=== PATIENT | female | born 2000 | race African-American/Black ===

== ENCOUNTER 2023-01-18 01:29 | Emergency (ER) | payer OTHER ==
[2023-01-18 02:04] VITALS: BMI 34.1
[2023-01-18 03:03] LABS: INR 1.04 (0.83-1.09); PROTHROMBIN TIME (PATIENT) 12.1 SEC (9.7-13.0)
[2023-01-18 03:13] LABS: CHLORIDE 107 mmol/L (98-107); SODIUM 138 mmol/L (136-145)
[2023-01-18 03:15] LABS: CALCIUM 9.4 mg/dL (8.5-10.1)
[2023-01-18 03:16] LABS: ALBUMIN 3.6 g/dl (3.4-5.0); ANION GAP 8 MMOL/L (8-16); BLOOD UREA NITROGEN 7.5 mg/dL (7-18); CO2 23 mmol/L (21-32); GLUCOSE,RANDOM 86 mg/dL (74-106)
[2023-01-18 03:19] LABS: CREATININE 0.6 mg/dL (0.55-1.3); SGOT/AST 19 U/L (15-37); SGPT/ALT 26 U/L (13-61)
[2023-01-18 03:21] LABS: BILIRUBIN,TOTAL 0.3 mg/dL (0.2-1); TOT PROT 7.5 g/dl (6.4-8.2)
[2023-01-18 03:22] LABS: ALK PHOS 111 U/L (45-117)
[2023-01-18 03:29] LABS: HEMATOCRIT 38.9 % (32.4-45.2); HEMOGLOBIN 13.4 GM/dL (10.7-15.3); MCH 27.2 pg (25.7-33.7); MCHC 34.4 g/dl (32.0-36.0); MEAN CELL VOLUME 79.1 fl (80-96); MEAN PLT VOLUME 7.6 fl (7.5-11.1); PLATELET COUNT 338 10^3/uL (134-434); RBC 4.92 M/mm3 (3.60-5.2); RDW 16.1 % (11.6-15.6); WHITE BLOOD COUNT 8.7 K/mm3 (4.0-10.0)
[2023-01-18] MEDS ORDERED: DALBAVANCIN HCL 1,500 MG in DEXTROSE 5%-WATER - 500 ML IVPB ONE (04:35)
[2023-01-18] MEDS ORDERED: DALBAVANCIN HCL 500 MG VIAL (RESTRICTED TO ID ONLY) IVPB ONE (04:39)
[2023-01-18 05:10] LABS: ANISOCYTOSIS 2+; MACROCYTOSIS 0; TEAR DROP CELLS 2+
[2023-01-18 05:37] VITALS: RESP 16; TEMP 99.3
[2023-01-18 08:56] VITALS: BP 112/67; PULSE 88
== END 2023-01-18 09:03 | disposition home or self-care (01) ==
LOC: JER 01:29
DX: T81.31XA Disruption of external operation (surgical) wound, not elsewhere classified, initial encounter (principal)
CPT/HCPCS: 36415; 74177-TC; 80053; 84702; 85025; 85610; 86850; 86900; 86901; 99285-25; J0875; Q9967

== ENCOUNTER 2024-08-20 12:51 | Day surgery (SDC) | payer OTHER ==
[2024-08-20 13:15] VITALS: BMI 35.9
[2024-08-20 14:33] LABS: BASO % 0.5 % (0-2.0); EOS % 0.4 % (0-4.5); HEMATOCRIT 27.6 % (32.4-45.2); HEMOGLOBIN 9.3 GM/dL (10.7-15.3); LYMPH % 16.2 % (8-40); MCHC 33.8 g/dl (32.0-36.0); MEAN CELL VOLUME 82.8 fl (80-96); MEAN PLT VOLUME 6.8 fl (7.5-11.1); MONO % 7.2 % (3.8-10.2); NEUT % 75.7 % (42.8-82.8); PLATELET COUNT 350 10^3/uL (134-434); RBC 3.33 M/mm3 (3.60-5.2); RDW 14.5 % (11.6-15.6); WHITE BLOOD COUNT 14.4 K/mm3 (4.0-10.0)
[2024-08-20 14:42] LABS: INR 1.06 (0.83-1.09)
[2024-08-20 14:45] LABS: ACTIVATED PTT 30.4 SECONDS (25.2-36.5)
[2024-08-20 14:53] LABS: CHLORIDE 107 mmol/L (98-107); POTASSIUM 3.8 mmol/L (3.5-5.1); SODIUM 139 mmol/L (136-145)
[2024-08-20 14:58] LABS: ALBUMIN 3.2 g/dl (3.4-5.0); ANION GAP 7 mmol/L (4-13); CO2 25 mmol/L (21-32); GLUCOSE,RANDOM 88 mg/dL (74-106)
[2024-08-20 14:59] LABS: BLOOD UREA NITROGEN 2.4 mg/dL (7-18)
[2024-08-20 15:00] LABS: CREATININE 0.6 mg/dL (0.55-1.3); SGOT/AST 13 U/L (15-37)
[2024-08-20 15:02] LABS: BILIRUBIN,TOTAL 0.4 mg/dL (0.2-1)
[2024-08-20 15:03] LABS: ALK PHOS 96 U/L (45-117); TOT PROT 6.4 g/dl (6.4-8.2)
[2024-08-20 16:25] LABS: SGPT/ALT 16 U/L (13-61)
[2024-08-20] MEDS ORDERED: ONDANSETRON 4 MG/2 ML VIAL ONE (16:57)
[2024-08-20] MEDS ORDERED: ACETAMINOPHEN INJECTION 100 ML ONE (16:57)
[2024-08-20] MEDS: GENTAMICIN 80MG PREMIX BAG IVPB ONE (17:00)
[2024-08-20] MEDS: metroNIDAZOLE 250 MG/50 ML PREMIX BAG IVPB ONE (17:00)
[2024-08-20] MEDS: ONDANSETRON 4 MG/2 ML VIAL IVPB ONE (17:03)
[2024-08-20] MEDS: ACETAMINOPHEN 1000 MG/100 ML BAG IVPB ONE (17:04)
[2024-08-20] MEDS ORDERED: LACTATED RINGERS SOLUTION 1,000 ML IV SCH ×2 (18:15→19:30)
[2024-08-20] MEDS: GENTAMICIN INJECTION 400 MG in SODIUM CHLORIDE 100 ML IVPB ONE (18:17)
[2024-08-20] MEDS: AMPICILLIN - 2 GM in SODIUM CHLORIDE 100 ML IVPB ONE (18:17)
[2024-08-20] MEDS ORDERED: PROPOFOL 20 ML ONE ×2 (18:24→19:02)
[2024-08-20] MEDS ORDERED: MIDAZOLAM HCL 2 MG/2 ML SINGLE DOSE VIAL ONE (18:25)
[2024-08-20] MEDS ORDERED: SUCCINYLCHOLINE CHLORIDE 200 MG/10 ML SYRINGE ONE (18:25)
[2024-08-20] MEDS ORDERED: ACETAMINOPHEN 325 MG TABLET (FP) PO PRN (19:18)
[2024-08-20] MEDS ORDERED: IBUPROFEN 400 MG TABLET (FP) PO PRN (19:18)
[2024-08-20] MEDS ORDERED: ONDANSETRON 4 MG/2 ML VIAL IVPUSH PRN (19:27)
[2024-08-20 20:21] LABS: BASO % 0.2 % (0-2.0); EOS % 0.1 % (0-4.5); HEMATOCRIT 25.4 % (32.4-45.2); HEMOGLOBIN 8.5 GM/dL (10.7-15.3); LYMPH % 11.6 % (8-40); MCH 28.3 pg (25.7-33.7); MCHC 33.5 g/dl (32.0-36.0); MEAN CELL VOLUME 84.3 fl (80-96); MEAN PLT VOLUME 7.1 fl (7.5-11.1); MONO % 4.9 % (3.8-10.2); NEUT % 83.2 % (42.8-82.8); PLATELET COUNT 309 10^3/uL (134-434); RBC 3.01 M/mm3 (3.60-5.2); RDW 13.8 % (11.6-15.6)
[2024-08-20 22:12] VITALS: BP 106/63; PULSE 105; RESP 18; TEMP 97.9
== END 2024-08-20 22:45 | disposition home or self-care (01) ==
LOC: JER 12:51 → JASUSAT 17:00 → J8W 20:18 → JASUSAT 22:45
PROVIDERS: ATTEND Obstetrics & Gynecology
PROC: 3E03329 Introduction of Other Anti-infective into Peripheral Vein, Percutaneous Approach (ICD-10-PCS; 2024-08-20)
PROC: 3E03329 Introduction of Other Anti-infective into Peripheral Vein, Percutaneous Approach (ICD-10-PCS; 2024-08-20)
PROC: 3E033GC Introduction of Other Therapeutic Substance into Peripheral Vein, Percutaneous Approach (ICD-10-PCS; 2024-08-20)
PROC: 3E033NZ Introduction of Analgesics, Hypnotics, Sedatives into Peripheral Vein, Percutaneous Approach (ICD-10-PCS; principal; 2024-08-20 17:00)
DX: O04.89 (Induced) termination of pregnancy with other complications (principal); D62 Acute posthemorrhagic anemia; R42 Dizziness and giddiness; R51.9 Headache, unspecified; R05.9 Cough, unspecified; J02.9 Acute pharyngitis, unspecified; Z20.822 Contact with and (suspected) exposure to COVID-19
CPT/HCPCS: 0241U-QW; 36415; 76830-TC; 80053; 84702; 85025; 85610; 85730; 86850; 86900; 86901; 86922; 87651; 88305-TC; 93005; 93010; 94760; 99285-25; J0131

== ENCOUNTER 2024-08-25 16:54 | Inpatient (IN) | payer OTHER ==
[2024-08-25 17:14] VITALS: BMI 34.9
[2024-08-25] MEDS ORDERED: ACETAMINOPHEN INJECTION 100 ML ONE (17:59)
[2024-08-25 18:06] LABS: BASO % 0.9 % (0-2.0); EOS % 1.9 % (0-4.5); HEMATOCRIT 25.9 % (32.4-45.2); HEMOGLOBIN 8.5 GM/dL (10.7-15.3); LYMPH % 28.1 % (8-40); MCH 26.7 pg (25.7-33.7); MCHC 32.9 g/dl (32.0-36.0); MEAN CELL VOLUME 81.2 fl (80-96); MEAN PLT VOLUME 6.9 fl (7.5-11.1); MONO % 5.4 % (3.8-10.2); NEUT % 63.7 % (42.8-82.8); PLATELET COUNT 487 10^3/uL (134-434); RBC 3.19 M/mm3 (3.60-5.2); RDW 14.2 % (11.6-15.6); WHITE BLOOD COUNT 13.9 K/mm3 (4.0-10.0)
[2024-08-25] MEDS: ACETAMINOPHEN 1000 MG/100 ML BAG IVPB ONE (18:09)
[2024-08-25 18:21] LABS: POTASSIUM 3.8 mmol/L (3.5-5.1)
[2024-08-25 18:25] LABS: ALBUMIN 3.2 g/dl (3.4-5.0); BLOOD UREA NITROGEN 7.3 mg/dL (7-18)
[2024-08-25 18:28] LABS: CREATININE 0.7 mg/dL (0.55-1.3)
[2024-08-25 18:30] LABS: BILIRUBIN,TOTAL 0.4 mg/dL (0.2-1); TOT PROT 6.9 g/dl (6.4-8.2)
[2024-08-25 18:39] LABS: INR 1.16 (0.83-1.09); PROTHROMBIN TIME (PATIENT) 13.3 SEC (9.7-13.0)
[2024-08-25 18:47] LABS: HCG,QUALITATIVE URINE Positive
[2024-08-25 18:48] LABS: PH,URINE 5.5 (5.0-8.0); URINE APPEARANCE CLEAR; URINE BILIRUBIN NEGATIVE (NEGATIVE); URINE COLOR YELLOW; URINE GLUCOSE (UA) NEGATIVE (NEGATIVE); URINE KETONE TRACE (NEGATIVE); URINE LEUK ESTERASE NEGATIVE (NEGATIVE); URINE NITRITE NEGATIVE (NEGATIVE); URINE PROTEIN TRACE (NEGATIVE)
[2024-08-25] MEDS: SODIUM CHLORIDE 0.9% 1000 ML INFUS.BAG IV ONE (18:49)
[2024-08-25] MEDS ORDERED: PIPERACILLIN/TAZOB 3.375 GM 3.375 GM/50 ML BAG IVPB ONE (19:42)
[2024-08-25] MEDS: ACETAMINOPHEN W/ CODEINE LIQ 5 ML CUP PO ONE ×2 (19:49)
[2024-08-25] MEDS: PIPERACILLIN/TAZOB 3.375 GM 3.375 GM in DEXTROSE 5%-WATER - 50 ML IVPB ONE (19:49)
[2024-08-25] MEDS: BENZONATATE 200 MG CAPSULE PO ONE (21:57)
[2024-08-26] MEDS ORDERED: ONDANSETRON 4 MG/2 ML VIAL IVPUSH PRN (06:17)
[2024-08-26 08:17] LABS: BASO % 0.4 % (0-2.0); EOS % 2.3 % (0-4.5); HEMATOCRIT 23.1 % (32.4-45.2); HEMOGLOBIN 7.7 GM/dL (10.7-15.3); LYMPH % 27.1 % (8-40); MCH 26.9 pg (25.7-33.7); MCHC 33.2 g/dl (32.0-36.0); MONO % 6.3 % (3.8-10.2); NEUT % 63.9 % (42.8-82.8); PLATELET COUNT 427 10^3/uL (134-434); RBC 2.85 M/mm3 (3.60-5.2); WHITE BLOOD COUNT 11.7 K/mm3 (4.0-10.0)
[2024-08-26 08:31] LABS: POTASSIUM 3.8 mmol/L (3.5-5.1)
[2024-08-26] MEDS ORDERED: BENZONATATE 200 MG CAPSULE PO PRN (08:33)
[2024-08-26 08:34] LABS: CALCIUM 9.1 mg/dL (8.5-10.1)
[2024-08-26 08:35] LABS: ALBUMIN 2.7 g/dl (3.4-5.0); BLOOD UREA NITROGEN 4.6 mg/dL (7-18); MAGNESIUM 1.8 mg/dL (1.8-2.4)
[2024-08-26 08:38] LABS: CREATININE 0.6 mg/dL (0.55-1.3); PHOSPHOROUS 3.8 mg/dL (2.5-4.9)
[2024-08-26 08:39] LABS: BILIRUBIN,TOTAL 0.4 mg/dL (0.2-1)
[2024-08-26] MEDS: methylPREDNISolone NA SUCC 40 MG/1 ML VIAL IVPUSH SCH (09:14)
[2024-08-26] MEDS: PIPERACILLIN/TAZOB 4.5 GM 4.5 GM/100 ML BAG IVPB SCH ×2 (09:14→17:26)
[2024-08-26] MEDS ORDERED: ENOXAPARIN NA (PORCINE) 40 MG/0.4 ML DISP.SYRIN SQ SCH (10:00)
[2024-08-26] MEDS: LACTATED RINGERS SOLUTION 1,000 ML/1,000 ML INFUS.BAG IV SCH (15:24)
[2024-08-26] MEDS: PIPERACILLIN/TAZOB 4.5 GM 4.5 GM in DEXTROSE 5%-WATER 100 ML IVPB SCH (17:13)
[2024-08-26 19:36] LABS: HEMATOCRIT 23.4 % (32.4-45.2); HEMOGLOBIN 7.8 GM/dL (10.7-15.3); MCH 27.1 pg (25.7-33.7); MCHC 33.2 g/dl (32.0-36.0); MEAN CELL VOLUME 81.5 fl (80-96); MEAN PLT VOLUME 7.3 fl (7.5-11.1); PLATELET COUNT 462 10^3/uL (134-434); RBC 2.87 M/mm3 (3.60-5.2); WHITE BLOOD COUNT 13.1 K/mm3 (4.0-10.0)
[2024-08-27 06:09] VITALS: RESP 18
[2024-08-27 08:52] VITALS: BP 103/86; PULSE 80; TEMP 98.2
[2024-08-27 08:59] LABS: HEMATOCRIT 23.1 % (32.4-45.2); HEMOGLOBIN 7.6 GM/dL (10.7-15.3); MCH 27.1 pg (25.7-33.7); MCHC 32.9 g/dl (32.0-36.0); MEAN CELL VOLUME 82.3 fl (80-96); MEAN PLT VOLUME 7.3 fl (7.5-11.1); PLATELET COUNT 452 10^3/uL (134-434); RBC 2.81 M/mm3 (3.60-5.2); RDW 14.2 % (11.6-15.6); WHITE BLOOD COUNT 16.7 K/mm3 (4.0-10.0)
[2024-08-27 09:33] LABS: CALCIUM 9.2 mg/dL (8.5-10.1)
[2024-08-27] MEDS: predniSONE 20 MG TABLET (UD) PO SCH (09:33)
[2024-08-27 09:34] LABS: ALBUMIN 2.8 g/dl (3.4-5.0); BLOOD UREA NITROGEN 6.4 mg/dL (7-18); MAGNESIUM 2.1 mg/dL (1.8-2.4)
[2024-08-27 09:35] LABS: BILIRUBIN,TOTAL 0.3 mg/dL (0.2-1)
[2024-08-27 09:37] LABS: CREATININE 0.6 mg/dL (0.55-1.3)
[2024-08-27] MEDS: ACETAMINOPHEN 500 MG TABLET (FP) PO PRN (09:45)
[2024-08-27 10:44] LABS: ANISOCYTOSIS 1+; MACROCYTOSIS 0
== END 2024-08-27 12:17 | disposition home or self-care (01) | DRG 139 ==
LOC: JERFT 16:54 → JERBED 20:36 → J7W 23:40
PROVIDERS: ADMIT Internal Medicine; ATTEND Internal Medicine
DX: J18.1 Lobar pneumonia, unspecified organism (principal); D62 Acute posthemorrhagic anemia; D64.9 Anemia, unspecified; D72.829 Elevated white blood cell count, unspecified; R00.0 Tachycardia, unspecified; R50.9 Fever, unspecified
CPT/HCPCS: 0241U-QW; 36415; 71046-TC-FY; 71275-TC; 80053; 81003; 83735; 84100; 84484; 84703; 85025; 85379; 85610; 86850; 86900; 86901; 87899; 93005; 93010; 99285-25; J0131; Q9967